=== PATIENT | female | born 1960 | race Caucasian/White ===

== ENCOUNTER 2018-10-19 19:22 | Emergency (ER) | payer OTHER ==
[~2018-10-19] VITALS: Ht 157.5 cm; Wt 68.0 kg
[~2018-10-19 19:22] MED LIST: LORA-476 PO
[2018-10-19 19:48] VITALS: BP 117/69
[2018-10-19] MEDS: KETOROLAC 30 MG/ML VIAL IM ONE (20:19)
[2018-10-19 20:20] VITALS: BP 117/69
[2018-10-19 20:29] LABS: BARBITURATE, URINE NEG. ng/ml (NEG <=200); BENZODIAZEPINE, URINE NEG. ng/mL (NEG <=200); CANNABINOID, URINE NEG. ng/mL (NEG <=50); COCAINE, URINE NEG. ng/mL (NEG <=300); OPIATE, URINE NEG. ng/mL (NEG <=2000); PHENCYCLIDINE SCREEN,URINE NEG. ng/mL (NEG <=25)
== END 2018-10-19 20:20 | disposition home or self-care (01) ==
LOC: MED 19:22
DX: S39.012A Strain of muscle, fascia and tendon of lower back, initial encounter (principal); M25.511 Pain in right shoulder; Z79.899 Other long term (current) drug therapy; X58.XXXA Exposure to other specified factors, initial encounter; Y93.89 Activity, other specified; Y92.89 Other specified places as the place of occurrence of the external cause; Y99.8 Other external cause status
CPT/HCPCS: 80305; 81002; 96372; 99283; J1885

== ENCOUNTER 2019-06-03 23:34 | Emergency (ER) | payer OTHER ==
[~2019-06-03] VITALS: Ht 157.5 cm; Wt 68.0 kg
[2019-06-03 23:34] VITALS: BP 133/80
--- NOTE | 2019-06-03 23:34 | NUR ---
PT IN [facility] WITH [facility]. AWAITING TO BE PLACED IN ROOM 8.
--- NOTE | 2019-06-03 23:45 | NUR ---
BIBA TO ER BED 8
--- NOTE | 2019-06-03 23:50 | NUR ---
S 58 Y FEMALE, BIB [facility] C/O BOTH EYE PAIN, PT STATING THAT SHE HAD FAKE EYE LASHES GLUED ON TODAY AROUND 1730 THEN 1HR AFTER ARRIVING HOME STARTED FEELING OF GENERALIZED BODY ITCHING, THEN SHE WENT TO HER MOMS HOUSE WHO PETS A CAT, MOM GOT CLOSE TO HER AND SHE STARTED FEELING ITCHING AND BURNING PAIN IN HER EYES. C/O 10/10 PAIN, NOTED BOTH EYE REDNESS AND EDEMA, C/O BOTH EYE SENSITIVITY, WITH DIFFICULTY OPENING EYES UPON ASSESSMENT, PT WAS GIVEN BENADRYL 25MG AND ZOFRAN 4MG IV BY EMS. PT AAOX4, GCS 15, RR EVEN UNLABORED, NO VISIBLE SKIN RASH NOTED AT THIS TIME, EDMD MADE AWARE, WILL CONTINUE TO MONITOR CLOSELY, BED LOCKED IN LOWEST POSITION, SIDERAILS UPX2, DAUGHTER AT BEDSIDE, WILL CONTINUE TO MONITOR CLOSELY. HX: DENIES MEDICATIONS: DENIES
[2019-06-04] MEDS ORDERED: TETRACAINE HCL/PF 0.5% OPTH 4 ML BTL OP ONE (00:10)
[2019-06-04] MEDS ORDERED: diphenhydrAMINE 50 MG/ML VIAL IVP ONE (00:10)
[2019-06-04] MEDS ORDERED: NACL 0.9% 1,000 ML IV ONE (00:10)
[2019-06-04] MEDS ORDERED: FLUORESCEIN OPTH STRIP 0.6 MG OP ONE (00:10)
--- NOTE | 2019-06-04 00:50 | NUR ---
DR. HAINES AT BEDSIDE ADMINISTERING MEDICATION AT THIS TIME
[2019-06-04] MEDS ORDERED: ERYTHROMYCIN 0.5% OPTH OINT 1 GM TUBE OP ONE (00:55)
[2019-06-04] MEDS ORDERED: ERYTHROMYCIN 0.5% OPTH OINT 1 GM TUBE ONE (01:24)
[2019-06-04 01:40] VITALS: BP 138/76
--- NOTE | 2019-06-04 01:40 | NUR ---
Patient discharged with v/s stable. Written and verbal after care instructions given and explained. Patient alert, oriented and verbalized understanding of instructions. Wheel Chair Assisted with to car. All questions addressed prior to discharge. ID band removed. Patient advised to follow up with PMD. Rx of ERYTHROMYCIN 0.5% OPTHALMIC OINTMENT, PREDNISONE 50MG, NORCO 5-325MG AND BENADRYL ALLERGY 25MG given. Patient educated on indication of medication including possible reaction and side effects. Opportunity to ask questions provided and answered.
== END 2019-06-04 01:40 | disposition home or self-care (01) ==
LOC: MED 23:34
DX: T88.6XXA Anaphylactic reaction due to adverse effect of correct drug or medicament properly administered, initial encounter (principal); S05.02XA Injury of conjunctiva and corneal abrasion without foreign body, left eye, initial encounter; S05.01XA Injury of conjunctiva and corneal abrasion without foreign body, right eye, initial encounter; Z79.899 Other long term (current) drug therapy; X58.XXXA Exposure to other specified factors, initial encounter; Y93.89 Activity, other specified; Y92.89 Other specified places as the place of occurrence of the external cause; Y99.8 Other external cause status
CPT/HCPCS: 96374; 99284; J1200; J7030

== ENCOUNTER 2022-12-06 21:24 | Emergency (ER) | payer OTHER ==
[~2022-12-06] VITALS: Ht 165.1 cm; Wt 74.8 kg
[2022-12-06 21:37] VITALS: BP 128/68
--- NOTE | 2022-12-06 22:00 | NUR ---
62YR FEMALE BIB SELF C/O THROAT PAIN [id number]. PT IS A&OX4. PT STATES HAVING "NO VOICE" [id number]. DENIES SOB OR CP. SKIN WARM AND DRY. DENIES COUGHING UP ANY PHLEGM. PT IS A SMOKER. NKDA NO MED HX
[2022-12-06] MEDS ORDERED: METH4TAB1 PO (22:33)
--- NOTE | 2022-12-06 22:37 | NUR ---
Patient discharged with v/s stable. Written and verbal after care instructions given and explained. Patient verbalized understanding. Ambulatory with steady gait. All questions addressed prior to discharge. Advised to follow up with PMD.
== END 2022-12-06 22:37 | disposition home or self-care (01) ==
LOC: MED 21:24
DX: J04.0 Acute laryngitis (principal); F17.210 Nicotine dependence, cigarettes, uncomplicated; Z71.6 Tobacco abuse counseling; Z79.899 Other long term (current) drug therapy; Z98.890 Other specified postprocedural states
CPT/HCPCS: 99283

== ENCOUNTER 2023-11-04 22:10 | Emergency (ER) | payer OTHER ==
[~2023-11-04] VITALS: Ht 157.5 cm; Wt 65.8 kg
[~2023-11-04 22:10] MED LIST changes: +METH4TAB1 PO
[2023-11-04 22:12] VITALS: BP 98/58; PULSE 83; RESP 17; TEMP 97.8; O2SAT 99
== END 2023-11-04 23:00 | disposition left against medical advice (07) ==
LOC: MED 22:10
DX: M54.2 Cervicalgia (principal); Z53.21 Procedure and treatment not carried out due to patient leaving prior to being seen by health care provider
CPT/HCPCS: 93005; 99281

== ENCOUNTER 2024-01-25 21:03 | Emergency (ER) | payer OTHER ==
[~2024-01-25] VITALS: Ht 157.5 cm; Wt 71.2 kg
[2024-01-25 21:14] VITALS: BP 121/67; PULSE 91; RESP 18; TEMP 99; O2SAT 94
[2024-01-25] MEDS: KETOROLAC 30 MG/ML VIAL IM ONE (23:41)
[2024-01-26 00:08] LABS: APPEARANCE,URINE CLEAR (CLEAR); BILIRUBIN,URINE NEGATIVE (NEGATIVE); BLOOD, URINE TRACE-I (NEGATIVE); COLOR,URINE YELLOW (YELLOW); LEUKOCYTE ESTERASE ,URINE 1+ (NEGATIVE); NITRITE, URINE NEGATIVE (NEGATIVE); PH,URINE 6.5 (5.0-9.0); PROTEIN,URINE NEGATIVE (NEGATIVE); UGLUCOSE NEGATIVE (NEGATIVE); UROBILINOGEN,URINE 0.2 EU/dL (0.2 - 1)
[2024-01-26 00:20] LABS: AMPHETAMINE, URINE POSITIVE ng/ml (NEG <=1000); BARBITURATE, URINE NEGATIVE ng/ml (NEG <=200); BENZODIAZEPINE, URINE NEGATIVE ng/mL (NEG <=200); CANNABINOID, URINE NEGATIVE ng/mL (NEG <=50); COCAINE, URINE NEGATIVE ng/mL (NEG <=300); OPIATE, URINE NEGATIVE ng/mL (NEG <=2000); PHENCYCLIDINE SCREEN,URINE NEGATIVE ng/mL (NEG <=25)
[2024-01-26 00:21] LABS: BACTERIA,URINE FEW /HPF (None Seen); MUCUS,URINE None Seen /LPF (None Seen); RBC,URINE 0-5 /HPF (0-5); SQUAMOUS EPITHELIAL CELL,UR 0-3 (FEW) /LPF (0-3 (FEW)); WBC,URINE 0-5 /HPF (0-5)
[2024-01-26] MEDS ORDERED: AMOX1TAB8 PO (00:26)
[2024-01-26] MEDS ORDERED: NAPR-54 PO (00:26)
[2024-01-26 00:41] VITALS: BP 111/91; PULSE 91; RESP 18; TEMP 99; O2SAT 97
== END 2024-01-26 00:40 | disposition home or self-care (01) ==
LOC: MED 21:03
DX: J18.9 Pneumonia, unspecified organism (principal); M54.50 Low back pain, unspecified; Z79.899 Other long term (current) drug therapy
CPT/HCPCS: 71045; 80305; 81001; 87086; 96372; 99284; J1885

== ENCOUNTER 2024-06-15 18:41 | Emergency (ER) | payer BC, OTHER ==
[~2024-06-15] VITALS: Ht 157.5 cm; Wt 70.5 kg
[~2024-06-15 18:41] MED LIST changes: +AMOX1TAB8 PO; +NAPR-337 PO
[2024-06-15 19:02] VITALS: BP 107/77; PULSE 92; RESP 18; TEMP 97.7; O2SAT 96
--- NOTE | 2024-06-15 21:09 | NUR ---
called, no answer
[2024-06-15 21:16] VITALS: BP 107/77; PULSE 92; RESP 18; TEMP 97.7; O2SAT 96
--- NOTE | 2024-06-15 21:16 | NUR ---
PATIENT LEFT WITHOUT BEING SEEN BY DR. knutson. NO FURTHER CARE PROVIDED FOR PATIENT.
== END 2024-06-15 21:09 | disposition left against medical advice (07) ==
LOC: MED 18:41
DX: M25.512 Pain in left shoulder (principal); R07.9 Chest pain, unspecified; R20.0 Anesthesia of skin; Z53.21 Procedure and treatment not carried out due to patient leaving prior to being seen by health care provider
CPT/HCPCS: 93005